=== PATIENT | male | born 1975 | race Hispanic/Latino ===

== ENCOUNTER → 2018-03-09 | Outpatient (CLI) | payer MEDICARE | END | disposition home or self-care (01) | LOC: RAH 12:41 | PROVIDERS: ATTEND Family Medicine | DX: J90 Pleural effusion, not elsewhere classified (principal); I31.3 Pericardial effusion (noninflammatory); K82.0 Obstruction of gallbladder | CPT/HCPCS: 71250 ==

== ENCOUNTER 2018-09-18 14:58 | Inpatient (IN) | payer MEDICARE | END 2018-09-22 10:50 | disposition home or self-care (01) | LOC: EDH 14:58 → EDHIP 19:45 → 3DH 09-19 03:00 | DX: J18.1 Lobar pneumonia, unspecified organism (principal); J96.01 Acute respiratory failure with hypoxia; N18.6 End stage renal disease; J85.0 Gangrene and necrosis of lung; J47.0 Bronchiectasis with acute lower respiratory infection; E87.5 Hyperkalemia; R19.7 Diarrhea, unspecified; D69.6 Thrombocytopenia, unspecified; R74.8 Abnormal levels of other serum enzymes; E11.51 Type 2 diabetes mellitus with diabetic peripheral angiopathy without gangrene; E11.21 Type 2 diabetes mellitus with diabetic nephropathy ==

== ENCOUNTER → 2018-12-07 | Outpatient (CLI) | payer MEDICARE ==
[~2018-12-07] MED LIST: ALBU2.5V2 IH; AMLO10TA7 PO; ATOR40TA71 PO; CLON1TAB12 PO; DICL2100G TP; ESOM40CA54 PO; FOLI1TAB61 PO; GEMF600T5 PO; HYDR-4068 PO; HYDR-4154 PO; IBUP-2070 PO; INSU100I21 SQ; LABE100T5 PO; LOSA100T58 PO; ONDA4TAB10 PO; OXCA300T28 PO; SERT50TA12 PO; ZOLP10TA2 PO
== END | disposition home or self-care (01) ==
LOC: RAH 13:12
PROVIDERS: ATTEND Family Medicine
DX: J32.2 Chronic ethmoidal sinusitis (principal); H70.92 Unspecified mastoiditis, left ear
CPT/HCPCS: 70450